=== PATIENT | female | born 1970 | race Caucasian/White ===

== ENCOUNTER 2022-10-17 06:37 | Day surgery (SDC) | payer BC ==
[~2022-10-17 06:37] MED LIST: Acetaminophen 325 MG Tab PO ONE; Lactated Ringers 1,000 ML IV SCH; Lidocaine 1%/Sod Bicarbonate in NS 8.4% 1 ML Syringe IDERM PRN; Morphine 8 MG, EPINEPHrine 0.3 MG, Cefuroxime 750 MG, Ketorolac 30 MG, Sodium Chloride ... PRN; Pregabalin 25 MG Cap PO ONE; Sodium Chloride 0.9% 10 ML Syringe FLUSH PRN; Sodium Chloride 0.9% 10 ML Syringe FLUSH SCH; oxyCODONE ER 10 MG TAB.ER PO ONE
[2022-10-17] MEDS ORDERED: Midazolam 1 MG/ML 2 ML SDV ONE ×2 (06:43→07:30)
[2022-10-17] MEDS ORDERED: ceFAZolin 2 GM Vial ONE ×2 (06:43→07:31)
[2022-10-17] MEDS ORDERED: Propofol 200 MG/20 ML SDV ONE (06:43)
[2022-10-17] MEDS ORDERED: EPINEPHrine 1 MG/ML SDV ONE (06:48)
[2022-10-17] MEDS ORDERED: Ropivacaine 0.5% 5 MG/ML 30 ML SDV ONE (06:48)
[2022-10-17] MEDS ORDERED: Tranexamic Acid 1,000 MG/10 ML Vial ONE (06:58)
[2022-10-17] MEDS ORDERED: Vancomycin 1 GM SDV ONE (06:58)
[2022-10-17] MEDS ORDERED: Triamcinolone Acetonide 40 MG/ML 1 ML SDV ONE (07:17)
[2022-10-17] MEDS ORDERED: Bupivacaine 0.25% 10 ML SDV ONE (07:17)
[2022-10-17] MEDS ORDERED: Pregabalin 25 MG Cap PO SCH (07:30)
[2022-10-17] MEDS ORDERED: ePHEDrine 50 MG/ML SDV ONE (07:53)
[2022-10-17] MEDS ORDERED: Lactated Ringers 1,000 ML ONE ×2 (08:06→08:28)
[2022-10-17] MEDS ORDERED: Ondansetron 4 MG/2 ML SDV IVPUSH PRN (08:19)
[2022-10-17] MEDS ORDERED: fentaNYL 100 MCG/2 ML SDV IVPUSH PRN (08:19)
[2022-10-17] MEDS ORDERED: HYDROmorphone 0.5 MG/0.5 ML Syringe IVPUSH PRN (08:19)
[2022-10-17] MEDS ORDERED: oxyCODONE 5 MG Tab PO ONE (10:38)
[2022-10-17 12:45] VITALS: BP 124/78; PULSE 80
== END 2022-10-17 12:30 | disposition home or self-care (01) ==
LOC: JD.SDS 06:37
PROVIDERS: ATTEND Orthopaedic Surgery
DX: M17.0 Bilateral primary osteoarthritis of knee (principal); I10 Essential (primary) hypertension; F32.A Depression, unspecified; D69.6 Thrombocytopenia, unspecified; Z79.899 Other long term (current) drug therapy; Z87.891 Personal history of nicotine dependence
CPT/HCPCS: 0055T; 20610; 27447; 36415; 64447; 73560; 85025; 97110; 97116; 97161; A9270; C1713; C1776; J0171; J0690; J0697; J1885; J2250; J2270; J2704; J2795; J3301; J3370; J3490; J7120; 01402

== ENCOUNTER 2023-02-24 06:46 | Day surgery (SDC) | payer BC ==
[~2023-02-24 06:46] MED LIST changes: -Acetaminophen 325 MG Tab PO ONE; +Acetaminophen 325 MG Tab PO SCH; -Lidocaine 1%/Sod Bicarbonate in NS 8.4% 1 ML Syringe IDERM PRN; -Pregabalin 25 MG Cap PO ONE; +Pregabalin 25 MG Cap PO SCH; +Tranexamic Acid 1,000 MG/10 ML Vial ONE; +Vancomycin 1 GM SDV ONE; -oxyCODONE ER 10 MG TAB.ER PO ONE; +oxyCODONE ER 10 MG TAB.ER PO SCH
[2023-02-24] MEDS ORDERED: Propofol 200 MG/20 ML SDV ONE ×2 (06:48→07:57)
[2023-02-24] MEDS ORDERED: fentaNYL 100 MCG/2 ML SDV ONE (06:48)
[2023-02-24] MEDS ORDERED: Midazolam 1 MG/ML 2 ML SDV ONE (06:49)
[2023-02-24] MEDS ORDERED: Lidocaine 1% 5 ML VIAL ONE (07:00)
[2023-02-24] MEDS ORDERED: Ondansetron 4 MG/2 ML SDV ONE (07:00)
[2023-02-24] MEDS ORDERED: ceFAZolin 2 GM Vial ONE (07:08)
[2023-02-24] MEDS ORDERED: Dexmedetomidine 200 MCG/2 ML SDV ONE (07:11)
[2023-02-24] MEDS ORDERED: Dexamethasone 4 MG/ML 5 ML MDV ONE (07:11)
[2023-02-24] MEDS ORDERED: Ropivacaine 0.5% 5 MG/ML 30 ML SDV ONE (07:12)
[2023-02-24] MEDS ORDERED: HYDROmorphone 0.5 MG/0.5 ML Syringe IVPUSH PRN (07:43)
[2023-02-24] MEDS ORDERED: fentaNYL 100 MCG/2 ML SDV IVPUSH PRN (07:43)
[2023-02-24] MEDS ORDERED: EPINEPHrine 1 MG/ML SDV ONE (08:55)
[2023-02-24] MEDS ORDERED: oxyCODONE 5 MG Tab PO PRN (09:24)
[2023-02-24 12:11] VITALS: BP 120/65; PULSE 73
== END 2023-02-24 12:31 | disposition home or self-care (01) ==
LOC: JD.SDS 06:46
PROVIDERS: ATTEND Orthopaedic Surgery
DX: M17.11 Unilateral primary osteoarthritis, right knee (principal); I10 Essential (primary) hypertension; F32.A Depression, unspecified; G43.909 Migraine, unspecified, not intractable, without status migrainosus; M10.9 Gout, unspecified; K21.9 Gastro-esophageal reflux disease without esophagitis; D69.6 Thrombocytopenia, unspecified; E66.9 Obesity, unspecified; Z79.1 Long term (current) use of non-steroidal anti-inflammatories (NSAID); Z79.899 Other long term (current) drug therapy; Z87.891 Personal history of nicotine dependence; Z79.82 Long term (current) use of aspirin; Z96.652 Presence of left artificial knee joint; Z68.41 Body mass index [BMI] 40.0-44.9, adult
CPT/HCPCS: 0055T; 27447; 64447; 73560; 97161; A9270; C1713; C1776; J0171; J0690; J0697; J1100; J1885; J2250; J2270; J2405; J2704; J2795; J3010; J3370; J7120; 01402; J3490